=== PATIENT | male | born 1965 | race Caucasian/White ===

== ENCOUNTER 2021-02-08 20:17 | Observation (INO) ==
[2021-02-08] MEDS ORDERED: Azithromycin 500 MG in 0.9 % Sodium Chloride 250 ML IVPB ONE (21:35)
[2021-02-08] MEDS ORDERED: 0.9 % Sodium Chloride 1,000 ML IVC ONE (21:35)
[2021-02-08 21:55] LABS: Basophils # 0.1 K/mcL (0.0-0.2); Basophils % 0.5 %; Eosinophils # 0.3 K/mcL (0.0-0.6); Eosinophils % 2.5 %; Hematocrit 43.2 % (37.5-50.1); Immature Granulocytes % 0.2 % (0-4); Lymphocytes % 22.7 %; Mean Corpuscular HGB Conc 30.1 g/dL (31.6-35.5); Mean Corpuscular Hemoglobin 23.8 pg (28.0-33.3); Mean Platelet Volume 11.1 fL (9.4-12.4); Monocytes # 0.9 K/mcL (0.0-1.3); Monocytes % 6.8 %; Neutrophils # 8.9 K/mcL (1.6-8.9); Platelet Count 216 K/mcL (140-400); Red Blood Count 5.47 M/mcL (4.19-5.50); Red Cell Distribution Width 15.5 % (11.5-14.5); Segmented Neutrophils % 67.3 %; White Blood Count 13.2 K/mcL (4.3-11.1)
[2021-02-08 22:21] LABS: BUN/Creatinine Ratio 14 (6-26); Blood Urea Nitrogen 15 mg/dL (6-20); Calcium 8.6 mg/dL (8.6-10.3); Carbon Dioxide 27 mEq/L (23-29); Chloride 105 mEq/L (98-107); Glucose 119 mg/dL (70-105); Osmolality,Calculated 292 (280-300); Potassium 3.4 mEq/L (3.5-5.1); Sodium 140 mEq/L (136-145); Troponin I 0.06 ng/mL (< 0.04); eGFR For African Americans > 60 (> 60); eGFR For Non-African Americans > 60 (> 60)
[2021-02-09] MEDS ORDERED: *HR* HYDROcodone/Acet 5/325 mg TABLET PO PRN (00:54)
[2021-02-09] MEDS ORDERED: Acetaminophen 325 MG TABLET PO PRN (00:54)
[2021-02-09] MEDS ORDERED: Melatonin 3 MG TABLET PO PRN (00:54)
[2021-02-09] MEDS ORDERED: Ondansetron 4 MG/2 ML VIAL IVP PRN (00:54)
[2021-02-09] MEDS ORDERED: *HR* Promethazine 25 MG/ML VIAL IM PRN (00:54)
[2021-02-09] MEDS ORDERED: Naloxone 0.4 MG/ML INJ IVP PRN (00:54)
[2021-02-09] MEDS ORDERED: Perflutren Lipid Microsphere 1.3 ML in 0.9 % Sodium Chloride 8.7 ML IVP PRN (02:38)
[2021-02-09] MEDS ORDERED: *HR* Dextrose 50 % in Water (Vial) 50 ML VIAL IVP PRN (02:42)
[2021-02-09] MEDS ORDERED: Dextrose Gel 15 GM/37.5 ML TUBE PO PRN ×2 (02:42)
[2021-02-09] MEDS ORDERED: D5% in Water 1,000 ML IVC PRN (02:42)
[2021-02-09] MEDS: Azithromycin 500 MG in 0.9 % Sodium Chloride 250 ML IVPB SCH (02:53)
[2021-02-09 03:36] LABS: Basophils # 0.1 K/mcL (0.0-0.2); Basophils % 0.5 %; Eosinophils # 0.3 K/mcL (0.0-0.6); Eosinophils % 2.4 %; Hematocrit 42.1 % (37.5-50.1); Hemoglobin 12.8 g/dL (12.9-16.9); Immature Granulocytes % 0.3 % (0-4); Lymphocytes # 2.3 K/mcL (0.6-4.6); Mean Corpuscular HGB Conc 30.4 g/dL (31.6-35.5); Mean Corpuscular Hemoglobin 23.8 pg (28.0-33.3); Mean Corpuscular Volume 78.3 fL (83.0-100.0); Mean Platelet Volume 11.3 fL (9.4-12.4); Monocytes # 0.8 K/mcL (0.0-1.3); Neutrophils # 7.6 K/mcL (1.6-8.9); Platelet Count 189 K/mcL (140-400); Red Blood Count 5.38 M/mcL (4.19-5.50); Red Cell Distribution Width 15.6 % (11.5-14.5); Segmented Neutrophils % 68.8 %; White Blood Count 11.1 K/mcL (4.3-11.1)
[2021-02-09] MEDS ORDERED: Furosemide 20 MG/2 ML VIAL IVP ONE (03:41)
[2021-02-09 03:42] LABS: INR 1.2; Prothrombin Time 13.4 Seconds (9.4-12.1)
[2021-02-09] MEDS: Insulin LISPRO 300 UNITS/3 ML VIAL SUBQ SCH ×3 (06:06→18:08)
[2021-02-09] MEDS: *HR* Enoxaparin 40 MG/0.4 ML SYRINGE SQ SCH (06:07)
[2021-02-09] MEDS: cefTRIAXone 1,000 MG in Water for inj. (sterile) 10 ML IVP SCH (13:36)
[2021-02-09] MEDS ORDERED: Ibuprofen 600 MG TABLET PO PRN (18:21)
[2021-02-09] MEDS: hydrALAZINE 10 MG TABLET PO SCH (20:17)
[2021-02-10] MEDS: Insulin LISPRO 300 UNITS/3 ML VIAL SUBQ SCH ×2 (02:05→02:14)
[2021-02-10] MEDS: Azithromycin 500 MG in 0.9 % Sodium Chloride 250 ML IVPB SCH (02:14)
[2021-02-10] MEDS: *HR* Enoxaparin 40 MG/0.4 ML SYRINGE SQ SCH (05:13)
[2021-02-10 05:16] LABS: Basophils % 0.4 %; Eosinophils # 0.3 K/mcL (0.0-0.6); Eosinophils % 2.9 %; Hematocrit 42.1 % (37.5-50.1); Hemoglobin 13.4 g/dL (12.9-16.9); Immature Granulocytes % 0.3 % (0-4); Lymphocytes # 2.2 K/mcL (0.6-4.6); Lymphocytes % 21.8 %; Mean Corpuscular HGB Conc 31.8 g/dL (31.6-35.5); Mean Corpuscular Hemoglobin 24.6 pg (28.0-33.3); Mean Corpuscular Volume 77.4 fL (83.0-100.0); Mean Platelet Volume 10.6 fL (9.4-12.4); Monocytes # 0.8 K/mcL (0.0-1.3); Neutrophils # 6.8 K/mcL (1.6-8.9); Platelet Count 195 K/mcL (140-400); Red Blood Count 5.44 M/mcL (4.19-5.50); Red Cell Distribution Width 15.5 % (11.5-14.5); Segmented Neutrophils % 66.6 %; White Blood Count 10.1 K/mcL (4.3-11.1)
[2021-02-10 05:38] LABS: BUN/Creatinine Ratio 13 (6-26); Blood Urea Nitrogen 13 mg/dL (6-20); Calcium 7.8 mg/dL (8.6-10.3); Carbon Dioxide 25 mEq/L (23-29); Chloride 106 mEq/L (98-107); Glucose 155 mg/dL (70-105); Osmolality,Calculated 289 (280-300); Potassium 3.3 mEq/L (3.5-5.1); Sodium 138 mEq/L (136-145); eGFR For African Americans > 60 (> 60); eGFR For Non-African Americans > 60 (> 60)
[2021-02-10 06:48] VITALS: BP 171/103
[2021-02-10] MEDS: hydrALAZINE 10 MG TABLET PO SCH (08:28)
[2021-02-10] MEDS ORDERED: Aspirin Enteric Coated 81 MG Tablet PO SCH (09:00)
[2021-02-10] MEDS ORDERED: Cholecalciferol (D-3) 1,000 UNIT (25MCG) TABLET PO SCH (09:00)
[2021-02-10] MEDS ORDERED: Multivit/Ca/Min/Fe/FA 1 TAB TABLET PO SCH (09:00)
[2021-02-10] MEDS: cefTRIAXone 1,000 MG in Water for inj. (sterile) 10 ML IVP SCH (10:41)
== END 2021-02-10 11:25 | disposition home or self-care (01) ==
LOC: EMEROOARM 20:17 → 2NENU 20:17 → SUATTDRO 02-09 00:37 → 2NENU 02-09 01:20
PROVIDERS: ADMIT Family Medicine; ATTEND Internal Medicine

== ENCOUNTER 2021-04-05 16:12 | Observation (INO) ==
[2021-04-05] MEDS ORDERED: Aspirin 325 MG TABLET PO ONE (16:40)
[2021-04-05] MEDS: Nitroglycerin 0.4 MG TAB.SUBL SL PRN ×3 (17:02→17:39)
[2021-04-05 17:21] LABS: Basophils # 0.1 K/mcL (0.0-0.2); Basophils % 0.4 %; Eosinophils # 0.2 K/mcL (0.0-0.6); Eosinophils % 1.7 %; Hemoglobin 13.5 g/dL (12.9-16.9); Immature Granulocytes % 0.3 % (0-4); Lymphocytes # 2.3 K/mcL (0.6-4.6); Lymphocytes % 19.8 %; Mean Corpuscular HGB Conc 31.4 g/dL (31.6-35.5); Mean Corpuscular Volume 76.5 fL (83.0-100.0); Mean Platelet Volume 10.9 fL (9.4-12.4); Monocytes # 0.7 K/mcL (0.0-1.3); Monocytes % 6.2 %; Neutrophils # 8.5 K/mcL (1.6-8.9); Platelet Count 227 K/mcL (140-400); Red Blood Count 5.62 M/mcL (4.19-5.50); Red Cell Distribution Width 15.6 % (11.5-14.5); Segmented Neutrophils % 71.6 %; White Blood Count 11.8 K/mcL (4.3-11.1)
[2021-04-05 17:40] LABS: BUN/Creatinine Ratio 12 (6-26); Blood Urea Nitrogen 15 mg/dL (6-20); Calcium 8.7 mg/dL (8.6-10.3); Carbon Dioxide 29 mEq/L (23-29); Chloride 106 mEq/L (98-107); Glucose 174 mg/dL (70-105); Osmolality,Calculated 297 (280-300); Potassium 3.4 mEq/L (3.5-5.1); Sodium 141 mEq/L (136-145); eGFR For African Americans > 60 (> 60); eGFR For Non-African Americans 59 (> 60)
[2021-04-05 17:50] LABS: Troponin I 0.05 ng/mL (< 0.04)
[2021-04-05] MEDS ORDERED: Acetaminophen 325 MG TABLET PO PRN (20:33)
[2021-04-05] MEDS ORDERED: Ondansetron 4 MG/2 ML VIAL IVP PRN (20:33)
[2021-04-05] MEDS ORDERED: Naloxone 0.4 MG/ML INJ IVP PRN (20:33)
[2021-04-05] MEDS ORDERED: Melatonin 3 MG TABLET PO PRN (20:33)
[2021-04-05] MEDS ORDERED: Dextrose Gel 15 GM/37.5 ML TUBE PO PRN ×2 (21:03)
[2021-04-05] MEDS ORDERED: *HR* Dextrose 50 % in Water (Vial) 50 ML VIAL IVP PRN (21:03)
[2021-04-05] MEDS ORDERED: D5% in Water 1,000 ML IVC PRN (21:03)
[2021-04-05] MEDS ORDERED: hydrALAZINE 10 MG TABLET PO SCH (23:30)
[2021-04-05] MEDS: hydrALAZINE 25 MG TABLET PO SCH (23:40)
[2021-04-05] MEDS: *HR* Heparin 5,000 UNIT/ML VIAL SQ SCH (23:40)
[2021-04-06 05:20] LABS: Basophils % 0.4 %; Eosinophils # 0.2 K/mcL (0.0-0.6); Eosinophils % 2.2 %; Hematocrit 43.5 % (37.5-50.1); Hemoglobin 13.3 g/dL (12.9-16.9); Immature Granulocytes % 0.1 % (0-4); Lymphocytes # 2.4 K/mcL (0.6-4.6); Mean Corpuscular HGB Conc 30.6 g/dL (31.6-35.5); Mean Corpuscular Hemoglobin 23.3 pg (28.0-33.3); Mean Corpuscular Volume 76.3 fL (83.0-100.0); Mean Platelet Volume 10.5 fL (9.4-12.4); Monocytes # 0.8 K/mcL (0.0-1.3); Monocytes % 8.4 %; Neutrophils # 5.8 K/mcL (1.6-8.9); Platelet Count 198 K/mcL (140-400); Red Cell Distribution Width 15.8 % (11.5-14.5); Segmented Neutrophils % 62.9 %; White Blood Count 9.3 K/mcL (4.3-11.1)
[2021-04-06 05:24] LABS: INR 1.1; Prothrombin Time 13.1 Seconds (9.4-12.1)
[2021-04-06] MEDS: *HR* Heparin 5,000 UNIT/ML VIAL SQ SCH ×3 (05:25→20:32)
[2021-04-06 05:35] LABS: BUN/Creatinine Ratio 12 (6-26); Blood Urea Nitrogen 13 mg/dL (6-20); Calcium 8.1 mg/dL (8.6-10.3); Carbon Dioxide 27 mEq/L (23-29); Chloride 107 mEq/L (98-107); Glucose 109 mg/dL (70-105); Osmolality,Calculated 291 (280-300); Phosphorous 2.8 mg/dL (2.7-4.5); Potassium 3.5 mEq/L (3.5-5.1); Sodium 140 mEq/L (136-145); eGFR For African Americans > 60 (> 60); eGFR For Non-African Americans > 60 (> 60)
[2021-04-06] MEDS ORDERED: Regadenoson 0.4 MG/5 ML SYRINGE IVP ONE (06:21)
[2021-04-06] MEDS: Insulin LISPRO 300 UNITS/3 ML VIAL SUBQ SCH ×3 (07:53→17:29)
[2021-04-06] MEDS: Cholecalciferol (D-3) 1,000 UNIT (25MCG) TABLET PO SCH (11:25)
[2021-04-06] MEDS: Multivit/Ca/Min/Fe/FA 1 TAB TABLET PO SCH (11:25)
[2021-04-06] MEDS: Aspirin Enteric Coated 81 MG Tablet PO SCH (11:25)
[2021-04-06] MEDS: hydrALAZINE 25 MG TABLET PO SCH ×4 (11:26→23:39)
[2021-04-06] MEDS: Nitroglycerin 0.4 MG TAB.SUBL SL PRN (11:28)
[2021-04-06] MEDS: [Fish Oil 1,000 Mg PO SCH (11:44)
[2021-04-06] MEDS: Eplerenone [Inspra] 50 MG PO SCH ×2 (11:44→21:42)
[2021-04-06] MEDS ORDERED: amLODIPine 5 MG TABLET PO SCH (12:00)
[2021-04-06] MEDS ORDERED: amLODIPine 5 MG TABLET PO ONE (13:28)
[2021-04-06] MEDS ORDERED: cloNIDine HCL 0.1 MG TABLET PO ONE (13:51)
[2021-04-06] MEDS: carvediloL 6.25 MG TABLET PO SCH (18:07)
[2021-04-06] MEDS: Insulin DETEMIR 100 UNIT/ML X5UNITS SUBQ SCH (20:33)
[2021-04-07] MEDS: *HR* Heparin 5,000 UNIT/ML VIAL SQ SCH ×3 (05:28→22:06)
[2021-04-07] MEDS: hydrALAZINE 25 MG TABLET PO SCH ×3 (05:28→17:42)
[2021-04-07] MEDS: Insulin LISPRO 300 UNITS/3 ML VIAL SUBQ SCH ×3 (08:06→17:44)
[2021-04-07] MEDS: Cholecalciferol (D-3) 1,000 UNIT (25MCG) TABLET PO SCH (08:56)
[2021-04-07] MEDS: Aspirin Enteric Coated 81 MG Tablet PO SCH (08:56)
[2021-04-07] MEDS: Multivit/Ca/Min/Fe/FA 1 TAB TABLET PO SCH (08:56)
[2021-04-07] MEDS: carvediloL 6.25 MG TABLET PO SCH ×2 (08:56→17:42)
[2021-04-07] MEDS: amLODIPine 5 MG TABLET PO SCH (08:56)
[2021-04-07] MEDS: Eplerenone [Inspra] 50 MG PO SCH (08:57)
[2021-04-07] MEDS: [Fish Oil 1,000 Mg PO SCH (08:57)
[2021-04-07] MEDS: Insulin DETEMIR 100 UNIT/ML X5UNITS SUBQ SCH (22:07)
[2021-04-08] MEDS: Eplerenone [Inspra] 50 MG PO SCH ×2 (01:40→08:04)
[2021-04-08] MEDS: hydrALAZINE 25 MG TABLET PO SCH ×3 (01:44→13:46)
[2021-04-08] MEDS: *HR* Heparin 5,000 UNIT/ML VIAL SQ SCH ×2 (06:30→13:46)
[2021-04-08] MEDS ORDERED: 0.9 % Sodium Chloride 2,000 ML ONE (07:55)
[2021-04-08] MEDS ORDERED: Heparin 1,000 UNITS/500 mL 500 ML ONE (07:55)
[2021-04-08] MEDS ORDERED: *HR* Heparin 10,000 UNIT/10 ML VIAL ONE (07:56)
[2021-04-08] MEDS ORDERED: ISOVUE-370 200 ML INFUS..BTL ONE (07:56)
[2021-04-08] MEDS ORDERED: Nitroglycerin 1,000 MCG/5 ML VIAL IV ONE (07:56)
[2021-04-08] MEDS: Insulin LISPRO 300 UNITS/3 ML VIAL SUBQ SCH ×2 (08:04→13:46)
[2021-04-08] MEDS: [Fish Oil 1,000 Mg PO SCH (08:04)
[2021-04-08] MEDS: Cholecalciferol (D-3) 1,000 UNIT (25MCG) TABLET PO SCH (08:15)
[2021-04-08] MEDS: Multivit/Ca/Min/Fe/FA 1 TAB TABLET PO SCH (08:15)
[2021-04-08] MEDS: amLODIPine 5 MG TABLET PO SCH (08:16)
[2021-04-08] MEDS: carvediloL 6.25 MG TABLET PO SCH (08:16)
[2021-04-08] MEDS: Aspirin Enteric Coated 81 MG Tablet PO SCH (08:16)
[2021-04-08] MEDS ORDERED: *HR* Midazolam HCl 2 MG/2 ML VIAL ONE (08:39)
[2021-04-08] MEDS ORDERED: *HR* FentaNYL (PF) 100 MCG/2 ML VIAL ONE (08:40)
[2021-04-08] MEDS ORDERED: Furosemide 20 MG/2 ML VIAL IVP ONE (09:45)
[2021-04-08 10:54] VITALS: TEMP 97.4
[2021-04-08 13:24] VITALS: BP 168/109; PULSE 74; O2SAT 96
[2021-04-08] MEDS ORDERED: cloNIDine HCL 0.1 MG TABLET PO ONE (13:40)
[2021-04-08] MEDS ORDERED: carvediloL 6.25 MG TABLET PO SCH (17:00)
== END 2021-04-08 14:42 | disposition home or self-care (01) ==
LOC: 3BNU 16:12 → EMEROOARM 16:12 → SUATTDRO 19:14 → 3BNU 20:26
PROVIDERS: ADMIT Internal Medicine; ATTEND Registered Nurse